=== PATIENT | male | born 1980 | race Caucasian/White ===

== ENCOUNTER 2022-06-30 07:12 | Outpatient (CLI) | payer BC, SELFPAY ==
[2022-06-30 18:21] LABS: Cholesterol* 200 mg/dL (90-199)
[2022-06-30 18:22] LABS: Glucose* 84 mg/dL (60-115); HDL Cholesterol* 40 mg/dL (>=40); LDL Cholesterol Calculated 142 mg/dL (<100); Triglycerides* 92 mg/dL (40-149)
== END 2022-06-30 07:13 | disposition home or self-care (01) ==
PROVIDERS: PCP Family Medicine; Visit Provider Family Medicine
DX: E78.5 Hyperlipidemia, unspecified (principal); Z13.1 Encounter for screening for diabetes mellitus
CPT/HCPCS: 80061; 82947

== ENCOUNTER 2024-11-18 13:00 | Outpatient (CLI) | payer BC, SELFPAY | END 2024-11-18 13:01 | disposition home or self-care (01) | LOC: NFLDREF 11-19 11:45 | PROVIDERS: PCP Family Medicine; Referring Provider Family Medicine; Visit Provider Family Medicine | DX: E78.5 Hyperlipidemia, unspecified (principal) | CPT/HCPCS: 80053; 80061 ==